=== PATIENT | female | born 1960 | race Caucasian/White ===

== ENCOUNTER 2021-12-12 11:33 | Emergency (ER) | payer OTHER ==
--- NOTE | 2021-12-12 13:13 | RAD REPORT ---
EXAM DESCRIPTION: RAD - Hand Right 3 View - 12/12/2021 12:43 pm CLINICAL HISTORY: PAIN COMPARISON: No comparisons FINDINGS: Oblique lucent line is present through the ulna side base of the fifth metacarpal. This is concerning for nondisplaced fracture. Correlation is needed for any pain symptom localizing to the b ase of the fifth metacarpal. No other fracture or suspicious bone finding noted. No joint abnormality . There is no dislocation or periosteal reaction noted. No foreign body or significant soft tissue a bnormality. IMPRESSION: Suspected nondisplaced fracture involving the ulna side base of the fifth metacarpal. Co rrelation is needed for any point tenderness.
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
[2021-12-12 13:58] VITALS: BP 141/93; TEMP 99; O2SAT 98
== END 2021-12-12 13:32 | disposition home or self-care (01) ==
LOC: ER 11:33
PROC: 2W3CX1Z Immobilization of Right Lower Arm using Splint (ICD-10-PCS; principal; 2021-12-12)
DX: S62.316A Displaced fracture of base of fifth metacarpal bone, right hand, initial encounter for closed fracture (principal); W50.0XXA Accidental hit or strike by another person, initial encounter; Y92.89 Other specified places as the place of occurrence of the external cause
CPT/HCPCS: 99283